=== PATIENT | female | born 1960 | race Caucasian/White ===

== ENCOUNTER 2018-11-06 10:34 | Emergency (ER) | payer MEDICARE ==
[~2018-11-06] VITALS: Ht 149.9 cm; Wt 50.8 kg
[2018-11-06 10:37] VITALS: BP 151/81
[2018-11-06] MEDS ORDERED: HYDROMORPHONE 1 MG/1 ML DISP.SYRIN IM ONE (11:00)
[2018-11-06] MEDS ORDERED: ONDANSETRON 4 MG TAB.RAPDIS SL ONE (11:00)
[2018-11-06] MEDS ORDERED: ONDANSETRON 4 MG TAB.RAPDIS ONE (11:07)
[2018-11-06] MEDS ORDERED: HYDROMORPHONE 1 MG/1 ML DISP.SYRIN ONE (11:07)
--- NOTE | 2018-11-06 12:45 | NUR ---
RX PROVIDED, Patient discharged to home in stable condition. Written and verbal after care instructions given. Patient verbalizes understanding of instruction.
== END 2018-11-06 12:47 | disposition home or self-care (01) ==
LOC: ER 10:35
DX: S23.41XA Sprain of ribs, initial encounter (principal); J45.909 Unspecified asthma, uncomplicated; Z79.52 Long term (current) use of systemic steroids; Z88.6 Allergy status to analgesic agent; Z88.2 Allergy status to sulfonamides; Z60.2 Problems related to living alone; W18.39XA Other fall on same level, initial encounter; Y93.89 Activity, other specified; Y92.89 Other specified places as the place of occurrence of the external cause; Y99.8 Other external cause status
CPT/HCPCS: 71250; 96372; 99284; J1170; Q0162

== ENCOUNTER 2025-05-09 07:57 | Emergency (ER) | payer MEDICARE ==
[~2025-05-09] VITALS: Ht 152.4 cm; Wt 52.2 kg
[2025-05-09 08:13] VITALS: BP 129/87; TEMP 98; O2SAT 96
[2025-05-09] MEDS ORDERED: AMOX-430 PO (08:25)
[2025-05-09] MEDS ORDERED: TDAP [DIPH/PERTUSSIS/TET] 0.5 ML VIAL IM ONE (08:35)
[2025-05-09] MEDS: TDAP [DIPH/PERTUSSIS/TET] 0.5 ML VIAL IM ONE (09:05)
== END 2025-05-09 09:06 | disposition home or self-care (01) ==
LOC: ER 07:57
DX: S61.233A Puncture wound without foreign body of left middle finger without damage to nail, initial encounter (principal); J45.909 Unspecified asthma, uncomplicated; M81.0 Age-related osteoporosis without current pathological fracture; Z88.2 Allergy status to sulfonamides; Z88.6 Allergy status to analgesic agent; W53.21XA Bitten by squirrel, initial encounter; Y93.89 Activity, other specified; Y92.89 Other specified places as the place of occurrence of the external cause; Y99.9 Unspecified external cause status
CPT/HCPCS: 90715